=== PATIENT | male | born 1965 | race African-American/Black ===

== ENCOUNTER 2017-03-10 15:38 | Emergency (ER) | payer OTHER ==
[~2017-03-10] VITALS: Ht 165.1 cm; Wt 39.5 kg
[2017-03-10] MEDS ORDERED: SYNTHROID50 MCG PO (16:19)
[2017-03-10] MEDS ORDERED: SEROQUEL 25 MG25 M1 PO (16:20)
[2017-03-10] MEDS ORDERED: REMERON15 MG PO (16:20)
[2017-03-10] MEDS ORDERED: DEPAKOTE ER500 M1 PO (16:20)
[2017-03-10] MEDS ORDERED: RANITIDINE 150150 M1 PO (16:21)
== END 2017-03-10 16:25 | disposition home or self-care (01) ==
LOC: ER 15:38
DX: S40.011A Contusion of right shoulder, initial encounter (principal); G40.909 Epilepsy, unspecified, not intractable, without status epilepticus; F32.9 Major depressive disorder, single episode, unspecified; W18.00XA Striking against unspecified object with subsequent fall, initial encounter; Y93.89 Activity, other specified; Y92.89 Other specified places as the place of occurrence of the external cause; Y99.8 Other external cause status